=== PATIENT | female | born 1965 | race Caucasian/White ===

== ENCOUNTER 2023-05-30 08:15 | Outpatient (AMB) | payer OTHER, SELFPAY ==
--- NOTE | 2023-05-30 08:12 | MHC.OFFWIV ---
Intake Vital Signs 05/30/23 08:16 Height 5 ft 4 in Weight 151 lb 8 oz BMI 26.0 BP 128/84 Blood Pressure Location Lt brachial Position Sitting Pulse 80 Pulse Source Pulse Oximeter Temp 97.6 F Temp Source Oral Pulse Oximetry (%) 96 Oxygen Delivery Method Room Air Intake Visit Reasons: EP sore throat cough (lobby) Intake Note: Pt presents to the office today for c/o a sore throat and cough that started about a week ago. Pt states she has some mucus in her throat as well. 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 No covid test + fatigue, cough keeping awake Not taking albuterol PFSH Social History (Updated 05/30/23 @ 08:20 by Shanice Garirson [facility]) Alcohol intake: never Patient Tobacco Use Status: Never used Tobacco Review of Systems Const Denies chills, Reports fatigue, Denies fever(s) and Denies headache(s) ENT Denies otalgia, Denies headache(s), Denies nasal congestion, Denies nasal discharge, Reports sore throat and Denies throat swelling Card Denies chest pain and Denies dyspnea Resp Denies chest congestion, Reports cough and Denies dyspnea Neuro Denies headache(s) Endo Reports fatigue Aller/Immun Denies throat swelling Physical Exam Vital Signs: Last Vital Signs Temp 97.6 F 05/30/23 08:16 Pulse 80 05/30/23 08:16 BP 128/84 05/30/23 08:16 Pulse Ox 96 05/30/23 08:16 Oxygen Delivery Method Room Air 05/30/23 08:16 BMI result Body Mass Index 26.0 General: Non-toxic, NAD. Speaking full sentences. Skin: Warm dry throughout Eye: EOMI HENT: Airway patent. Uvula midline. Minimal pharyngeal erythema or edema. No [employer] WORK[employer] or exudates Bilateral canals clear. TM non-erythematous, non-bulging. No TM perforation or hemotympanum noted. Lymph: No tonsillar/cervical lymphadenopathy Respiratory: CTA bilaterally. No wheezes, rales or rhonchi Cardiac: RRR. No murmur MSK: Full ROM extremities. Neurology: A/O. No aphasia or facial droop. Gait without abnormality Psych: Good mood and affect Results AMB Rapid Strep AMB Rapid Strep Negative Last Edit by Shanice Garrison CMA on 05/30/23 08:27 Results Reviewed Results Reviewed: Laboratory Last Values Strep Scn [facility] Negative 05/30/23 08:26 Assessment & Plan Assessment & Plan (1) Upper respiratory tract infection: Code(s): J06.9 - Acute upper respiratory infection, unspecified Qualifiers: URI type: unspecified viral URI Qualified Code(s): J06.9 - Acute upper respiratory infection, unspecified Plan: Patient seen and evaluated. Strep: negative Lungs CTA Tessalon Pt declined cough syrup with codeine Guaifenesin sent to pharmacy Discussed timeline Discussed s/s that warrant re-eval for concern of bacterial infection Patient gave verbal understanding and had no additional questions or concerns at time of discharge All questions answered Orders: Orders AMB Rapid Strep Screen Today Z13.9 - Encounter for screening, unspecified Medications: New benzonatate 200 mg PO BID-TID PRN 20 caps 0RF cough guaifenesin 100 mg (5 mL) PO Q4H PRN 500 mL 0RF cough Coding Level of Care Code Est Pt Level 3 (61951) Diagnoses Viral upper respiratory tract infection J06.9 URI type: unspecified viral URI
[2023-05-30 08:16] VITALS: BP 128/84; PULSE 80; TEMP 36.4; O2SAT 96; BMI 26.0
== END 2023-05-30 08:39 | disposition home or self-care (01) ==
PROVIDERS: PCP Physician Assistant; Visit Provider Physician Assistant
DX: J06.9 Acute upper respiratory infection, unspecified (principal); J02.9 Acute pharyngitis, unspecified
CPT/HCPCS: 87880; 99213